=== PATIENT | male | born 1995 | race African-American/Black ===

== ENCOUNTER → 2016-05-23 | Outpatient (CLI) | payer OTHER ==
--- NOTE | ~2016-05-23 | CR7 ---
[facility] RADIOLOGY TEXT RESULTS PATIENT: NESTOR PATTERSON LOCATION: [facility] : [birth year] UNIT #: [id number] AGE: [address]: MOE GALLARDO SEX: M ORDER DR: [id number] [facility]. [place], [place] [address] [id number] O MR#: [id number] Acc #: [id number] NAME: NESTOR PATTERSON : 1995 SEX: M STUDY DATE/TIME: 05/23/2016 13:36 UNIT: [facility] ROOM: STUDY DESCRIPTION: CR Abdomen Single AP View Attending Physician: Chantale Juarez Ordering Physician: Staff Doctor Not On Primary Care Physician: Karina Durham M.D. MEDICAL IMAGING REPORT This report is preliminary unless electronic signature is present EXAM Frontal abdomen. DATE OF EXAM 05/23/2016 INDICATIONS Abdominal pain that starts in the mid quadrant of the abdomen. Symptoms for the past year and a half to 2 years. Stomach and abdominal pain. REPORT Frontal abdomen was performed. COMPARISON No comparisons. FINDINGS Vertebral body heights preserved. Bowel gas pattern nonspecific but nonobstructive with a moderate stool burden in the colon. No suspicious calcifications, organomegaly or mass effect. IMPRESSION Ample stool in the colon, otherwise, negative. Dictated by... John Hunt M.D. THIS IS AN ELECTRONICALLY VERIFIED REPORT John Hunt M.D. at 05/24/2016 7:43 AM ALENA/juan TD: 05/23/2016 23:26 JOB #: [id number] [facility] RADIOLOGY TEXT RESULTS PATIENT: NESTOR PATTERSON LOCATION: [facility] : [birth year] UNIT #: [id number] AGE: [address]: MOE GALLARDO SEX: M ORDER DR: MEDICAL IMAGING REPORT COPY
== END | disposition home or self-care (01) ==
LOC: CRAD 13:24
DX: R10.9 Unspecified abdominal pain (principal)
CPT/HCPCS: 74000